=== PATIENT | male | born 1995 | race Caucasian/White ===

== ENCOUNTER 2023-11-02 00:10 | Inpatient (IN) ==
--- NOTE | 2023-11-02 00:44 | Emergency Department Note ---
Impression & Plan Hallucinations, Suicidal ideation ED Provider Note ED Provider Note NAME: JEROME KISER AGE:28 SEX: Male : 1995 ARRIVES VIA: Police INFORMANT: Patient ED PROVIDER(s): Jessica Kang DO CHIEF COMPLAINT: Mental health evaluation HPI: This is a 28-year-old male presents emergency department for mental health evaluation. Patient brought in by police after he called his mother stating the voices were getting worse and he had thoughts of wanting to kill himself by jumping off a bridge. He states this is most severe the voices have never been. He then called 911 and told them the same thing. He states he has previously attempted many years ago. Patient does follow with outpatient mental providers due to his history of schizophrenia and PTSD. He does get Invega injections and does feel they help, just that they wear off too soon. PAST MEDICAL HISTORY:See Below PAST SURGICAL HISTORY:See Below FAMILY HISTORY:See Below SOCIAL HISTORY:See Below HOME MEDICATIONS:See Below ALLERGIES:See Below VITALS:See Below PHYSICAL EXAMINATION: GENERAL: alert, well appearing, well nourished, no distress, non-toxic EYE EXAM: normal conjunctiva, PERRL and EOM's grossly intact OROPHARYNX: no exudate, no erythema, lips, buccal mucosa, and tongue normal and mucous membranes are moist NECK: supple, no nuchal rigidity, no adenopathy, non-tender LUNGS: Clear to auscultation. Normal chest wall mechanics, no w/r/r HEART: no murmurs, S1 normal and S2 normal ABDOMEN: abdomen soft, non-tender, normo-active bowel sounds, no masses, no rebound or guarding. SKIN: no rashes, petechiae, orbruising UPPER EXTREMITIES: upper extremities are grossly normal. FROM, nml pulses b/l. LOWER EXTREMITIES: No pitting edema. FROM, nml pulses b/l. NEURO EXAM: Normal sensorium, cranial nerves II-XII grossly intact, normal speech, no facial droop,nogross weakness of arms, no gross weakness of legs. Gross sensation intact. No ataxia. Vital Signs: reviewed and remarkable Differential Diagnosis: mood disorder, suicidal ideation, anxiety, depression, substance abuse, toxidrome, infection, hypoglycemia, electrolyte abnormalities, ICH as well as others were considered. MEDICAL DECISION MAKING: This is a 28-year-old male presents emergency department due to concern for increasing hallucinations as well as thoughts of suicide with a plan. Patient states he has been compliant with medications prescribed and feels they do help although they just wear off too soon. He states that the hallucinations have never been this bad previously. Labs and urine collected and sent per protocol. Patient cooperative during exam. Patient evaluated by case management and was in agreement with recommendation for additional inpatient evaluation and treatment. Patient referred to [facility] and was accepted there. 201 signed by me. Consultation(s): 0335: Patient seen and evaluated by case management and referred to [facility] Patient accepted to [facility] 201 signed by me. ER Treatment Provided: See below Diagnostics Interpreted By Me: -Laboratory studies: As stated above and show below. Triage Nursing Note Reviewed Prior/Outside Records Reviewed Past Med/Surg History Problem List (Updated 11/02/23 @ 00:44 by Jessica Kang DO) Suicidal ideation (Acute) Hallucinations (Acute) Right testicular pain (Acute) Social History Smoking Status: Current every day smoker Tobacco Type: Cigarettes Preferred Language: Eritrean Feels Safe at Home: Yes Gender Identity: Male Allergies Allergies Allergy/AdvReac Type Severity Reaction Status Date / Time No Known Allergies Allergy Unverified 10/09/15 08:34 Results & Data (ED) Vital Signs Vital Signs - 24 hr 11/02/23 00:28 Pulse Rate 106 H Respiratory Rate 18 Respiratory Effort / Characteristics Non-Labored Spontaneous Respiratory Depth Normal Respiratory Pattern Regular Blood Pressure 114/81 Blood Pressure Mean 92 Pulse Oximetry 98 Oxygen Delivery Method Room Air Sepsis Recent Fever Within 48 Hours No Sepsis New/Unexplained Change in Mental Status No Sepsis Action Taken by Nursing No Action Required Laboratory Data 11/02/23 00:41 11/02/23 00:41 Lab Results 11/02/23 11/02/23 11/02/23 Range/Units 00:41 01:06 01:47 WBC 9.30 (4.8-10.8) K/ul RBC 5.46 (4.70-6.10) M/uL Hgb 16.0 (14.0-18.0) g/dl Hct 45.0 (42.0-52.0) % MCV 82.4 (80.0-100.0) fL MCH 29.3 (25.0-34.0) pg MCHC 35.6 (32.0-36.0) g/dL RDW Std Deviation 35.9 L (36.4-46.3) fL RDW Coeff of Wero 12.0 (11.5-14.5) % Plt Count 209 (130-400) K/uL MPV 10.6 (9.4-12.4) fL Immature Gran % (Auto) 0.2 % Neut % (Auto) 75.6 % Lymph % (Auto) 17.3 % Early % (Auto) 6.6 % Eos % (Auto) 0.1 % Baso % (Auto) 0.2 % Neut # (Auto) 7.03 H (1.40-6.50) K/uL Lymph # (Auto) 1.61 (1.20-3.40) K/uL Early # (Auto) 0.61 H (0.11-0.59) K/uL Eos # (Auto) 0.01 (0.00-0.50) K/uL Baso # (Auto) 0.02 (0.00-0.20) K/uL Immature Gran # (Auto) 0.02 (0.01-0.20) K/uL Sodium 139 (136-145) mmol/L Potassium 3.4 L (3.5-5.1) mmol/L Chloride 106 (98-107) mmol/L Carbon Dioxide 22 (21-32) mmol/L Anion Gap 11 (3-11) BUN 12 (6-23) mg/dl Creatinine 1.08 (0.6-1.4) mg/dl Est Cr Clr Drug Dosing Not Reportable Est GFR ( Amer) 109.2 ml/min Est GFR (Non-Af Amer) 94.2 ml/min BUN/Creatinine Ratio 11.1 (10-20) Glucose 94 (70-99(Fasting)) mg/dl Calcium 9.6 (8.6-10.3) mg/dl Total Bilirubin 0.7 (0.2-1.0) mg/dl AST 15 (13-39) U/L ALT 11 (7-52) U/L Alkaline Phosphatase 55 (34-104) U/L Total Protein 7.3 (6.0-8.3) gm/dl Albumin 5.1 H (3.4-5.0) gm/dl Globulin 2.2 L (2.5-4.0) gm/dl Albumin/Globulin Ratio 2.3 H (0.9-2) TSH 2.737 (0.300-4.500) uIu/ml Urine Color Yellow Urine Appearance Clear (Clear) Urine pH 5.5 (4.5-7.5) Ur Specific [place] 1.018 (1.000-1.030) Urine Protein Negative (Negative) Urine Glucose (UA) Negative (Negative) Urine Ketones Trace H (Negative) Urine Blood Negative (Negative) Urine Nitrite Negative (Negative) Urine Bilirubin Negative (Negative) Urine Urobilinogen Negative (Negative) Ur Leukocyte Esterase Negative (Negative) Salicylates < 3.0 L (3.0-30) mg/dl Urine Opiates Screen Neg (Neg) Ur Methadone, Qual Neg (Neg) Urine Fentanyl Screen Neg (Neg) Acetaminophen < 3 L (10-30) ug/ml Urine Barbiturates Neg (Neg) Ur Phencyclidine (PCP) Neg (Neg) U Amphetamin/Meth Scrn Neg (Neg) MDMA (Ecstasy) Screen Neg (Neg) U Benzodiazepines Scrn Neg (Neg) Ur Cocaine Metabolite Neg (Neg) U Marijuana (THC) Screen Neg (Neg) Ethyl Alcohol mg/dL < 10.0 (<10.0) mg/dl SARS-CoV-2, RNA, NAAT NEGATIVE (NEGATIVE) Administered Medications Discontinued Medications Lorazepam (Lorazepam 1 Mg Tab) 1 mg PO NOW STA Stop: 11/02/23 02:32 Last Admin: 11/02/23 02:37 Dose: 1 mg Documented By: ABRAN Nicotine (Nicotine 21 Mg/24 Hr Tdsy) 1 patch TD NOW STA Stop: 11/02/23 02:15 Last Admin: 11/02/23 02:18 Dose: 1 patch Documented By: ABRAN Discharge Plan Visit Data Chief Complaint: Mental Health Evaluation Stated Complaint: MENTAL HEALTH ASSESSMENT(302) ED Provider: Jessica Kang Discharge Problem: Hallucinations, Suicidal ideation
[2023-11-02 00:56] LABS: Basophils # (auto) 0.02 K/uL (0.00-0.20); Basophils % (auto) 0.2 %; Eosinophils # (auto) 0.01 K/uL (0.00-0.50); Eosinophils % (auto) 0.1 %; Immature Granulocytes # (auto) 0.02 K/uL (0.01-0.20); Immature Granulocytes % (auto) 0.2 %; Lymphocytes # (auto) 1.61 K/uL (1.20-3.40); Lymphocytes % (auto) 17.3 %; Mean Corpuscular Hemoglobin 29.3 pg (25.0-34.0); Mean Corpuscular Hgb Conc 35.6 g/dL (32.0-36.0); Mean Corpuscular Volume 82.4 fL (80.0-100.0); Mean Platelet Volume 10.6 fL (9.4-12.4); Monocytes # (auto) 0.61 K/uL (0.11-0.59); Monocytes % (auto) 6.6 %; Neutrophils # (auto) 7.03 K/uL (1.40-6.50); Neutrophils % (auto) 75.6 %; Platelet Count 209 K/uL (130-400); RDW Standard Deviation 35.9 fL (36.4-46.3); Red Blood Count 5.46 M/uL (4.70-6.10)
[2023-11-02 01:15] LABS: Acetaminophen < 3 ug/ml (10-30); Salicylate < 3.0 mg/dl (3.0-30)
[2023-11-02 01:23] LABS: Alanine Aminotransferase 11 U/L (7-52); Albumin Globulin Ratio 2.3 (0.9-2); Albumin Level 5.1 gm/dl (3.4-5.0); Alkaline Phosphatase 55 U/L (34-104); Anion Gap 11 (3-11); Aspartate Aminotransferase 15 U/L (13-39); BUN Creatinine Ratio 11.1 (10-20); Bilirubin,Total 0.7 mg/dl (0.2-1.0); Blood Urea Nitrogen 12 mg/dl (6-23); Calcium 9.6 mg/dl (8.6-10.3); Carbon Dioxide 22 mmol/L (21-32); Chloride 106 mmol/L (98-107); Est GFR (African American) 109.2 ml/min; Est GFR (Non-African American) 94.2 ml/min; Globulin 2.2 gm/dl (2.5-4.0); Glucose 94 mg/dl (70-99(Fasting)); Potassium 3.4 mmol/L (3.5-5.1); Sodium 139 mmol/L (136-145); Total Protein 7.3 gm/dl (6.0-8.3)
[2023-11-02 01:24] LABS: Appearance Urine Clear (Clear); Bilirubin Urine Negative (Negative); Blood Urine Negative (Negative); Color Urine Yellow; Glucose Urine UA Negative (Negative); Ketones Urine Trace (Negative); Leukocyte Esterase Urine Negative (Negative); Nitrite Urine Negative (Negative); Protein Urine Negative (Negative); Specific Gravity Urine 1.018 (1.000-1.030); Urobilinogen Urine Negative (Negative); pH Urine 5.5 (4.5-7.5)
[2023-11-02 01:39] LABS: Thyroid Stimulating Hormone 2.737 uIu/ml (0.300-4.500)
[2023-11-02 02:17] LABS: Amphetamines+Metham, Urine Neg (Neg); Barbiturates, Urine Neg (Neg); Benzodiazepine, Urine Neg (Neg); Cocaine, Urine Neg (Neg); Fentanyl, Urine Neg (Neg); MDMA (Ecstacy), Urine Neg (Neg); Marijuana, Urine Neg (Neg); Methadone, Urine Neg (Neg); Opiate, Urine Neg (Neg); Phencyclidine, Urine Neg (Neg)
[2023-11-02] MEDS: NICOTINE 21 MG/24 HR TDSY TD STA (02:18)
[2023-11-02] MEDS: LORazepam 1 MG TAB PO STA (02:37)
[2023-11-02] MEDS ORDERED: BISMUTH SUBSALICYLATE LIQD 236 ML PO PRN (05:12)
[2023-11-02] MEDS ORDERED: LORazepam 1 MG TAB PO PRN (05:12)
[2023-11-02] MEDS ORDERED: MAGNESIUM HYDROXIDE SUSP 30 ML UDC PO PRN (05:12)
[2023-11-02] MEDS ORDERED: hydrOXYzine HCl 25 MG TAB PO PRN (05:12)
[2023-11-02] MEDS ORDERED: SODIUM CHLORIDE 0.65% NA SOLN 45 ML (OCEAN) PRN (05:12)
[2023-11-02] MEDS ORDERED: risperiDONE 0.25 MG TAB PO PRN (05:17)
[2023-11-02] MEDS ORDERED: NICOTINE 21 MG/24 HR TDSY TD SCH (09:00)
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
[2023-11-02] MEDS: THIAMINE HCL 100 MG TAB PO SCH (12:00)
[2023-11-02] MEDS: PALIPERIDONE 3 MG TABCR PO SCH (15:19)
[2023-11-02] MEDS: PALIPERIDONE 1.5 MG TABCR PO SCH (15:39)
[2023-11-02] MEDS: NICOTINE 21 MG/24 HR TDSY TD SCH (16:52)
[2023-11-02] MEDS: hydrOXYzine HCl 25 MG TAB PO PRN (21:28)
--- NOTE | 2023-11-03 08:40 | Psychiatric Progress Note ---
Date of Service November 03, 2023 Impression / Recommendations Impression JEROME Lazaro" is a 28-year-old man who currently lives in [place] with his uncle, has a history of schizophrenia and PTSD, and was admitted on 11/02/23 03:49 on a 201 voluntary commitment for auditory hallucinations and SI with plan of jumping from a bridge. Diagnostically consistent with acute exacerbation of schizophrenia with prominent thought blocking and sparsity of thought content and major depressive episode. A: Ongoing psychosis with AH but lessening a bit today with addition of po Invega which he is tolerating well. No thoughts of SI today.He prefers not to start any additional medications for his mood as he reports bad experience with being on medications in the past during psychiatric hospitalizations, would like to stay on Invega monotherapy. Will discontinue AWSS as not scoring. MNPR due to psychosis with auditory hallucinations Overall, I spent a total of 35 minutes on this case including meeting with the patient, reviewing the chart, nursing report, multidisciplinary team meeting, orders, and documentation. (1) Schizophrenia: (2) Depression with suicidal ideation: (3) Hallucinations: (4) Alcohol use disorder: Plan 11/03/2023: Continue current medications and tx plan. Fasting labwork tomorrow as he had coffee with sugar this AM. 11/02/2023: The patient was admitted to the [facility] ([facility]) on q15 min checks (behavioral with suicide precautions) for safety. The patient will participate in group, recreational, and milieu therapies and will be offered additional individual and family sessions as clinically appropriate. -Start Invega 3mg daily -If he tolerates addition of po Invega would likely benefit from increasing Invega UMANA to 234mg starting next month -AWSS with thiamine and folic acid -Fasting labs tomorrow AM Inventory Assets Strengths: supportive relationships, willing to get treatment Needs: safety and stabilization, medication adjustment, additional coping skills, increased outpatient services Suicide Risk Level Suicide Risk Level: High-Moderate (q15 min suicide checks) (increased psychosis and SI with plan prior to admission but denies any command AH, feels safe in the hospital, feels able to ask for increased support if needed) Risk Factors Assessment Male: Yes : Yes Do You Have Access To A Gun?: No Health Problems: No Mental Health Diagnoses: Yes Substance Use Disorders: Yes Previous Attempt: Yes Previous Psychiatric Hospitalization: Yes Protective Factors Assessment Employed: Yes Supportive Family: Yes Good Rapport with Provider: Yes Interval History Identifying Information JEROME Lazaro" is a 28-year-old man who currently lives in [place] with his uncle, has a history of schizophrenia and PTSD, and was admitted on 11/02/23 03:49 on a 201 voluntary commitment for auditory hallucinations and SI with plan of jumping from a bridge. Chief Complaint "I think the sleep is helping". Review of Systems Sleep Information Total Hours of Sleep: 7.5 Sleep Comments: Meal Information Percent Meal Consumed - Breakfast: 0 Percent Meal Consumed - Lunch: 100 Percent Meal Consumed - Dinner: 100 Nutrition Comment: Subjective Subjective Patient was seen & assessed and interval progress reviewed with treatment team nursing and social work. Attended one group yesterday afternoon but slept through it. Isolated but came out for meals. Irritable with RNs and staff this morning. Today reports feeling a little better which he attributes to the addition of the po Invega and sleeping. Reports poor sleep since last week due to increased distress from the voices. Continues to deny any command AH but is distressed by the voices because they talk about how they are going to harm people and "it's what they're saying, it's just not good stuff". He feels the po invega is helping him "feel more relaxed" and "keeping the voices from progressing". Physical Exam Psychiatric Orientation: alert and oriented x 3 Apperance: + disheveled Eye Contact: + fair eye contact Motor Behavior: + psychomotor retardation Speech: normal rate/rhythm/volume of speech Affect: + flat affect Mood: + depressed mood Thought Process: + thought blocking Thought Content: reality based without delusions Suicidal Thoughts: denies suicidal thoughts (none so far today), denies suicidal plan (none for hospital, outside via jumping from bridge) and denies suicidal intent Homicidal Thoughts: denies homicidal thoughts Hallucinations: + auditory hallucinations (voices talk about harming people, denies any command AH); no visual hallucinations Cognition: recent memory grossly intact, remote memory grossly intact, attention grossly intact and language grossly intact Insight: + limited insight Judgment: + limited judgement Vital Signs (Past 24 Hours) Last Vital Signs Temp 36.6 C 11/03/23 06:24 Pulse 85 11/03/23 06:24 Resp 16 11/03/23 06:24 BP 124/77 11/03/23 06:24 Pulse Ox 98 11/03/23 06:24 O2 Del Method Room Air 11/03/23 06:24 Results & Data ([facility]) Current Inpatient Medications Current Inpatient Medications: Current Inpatient Medications Acetaminophen (Acetaminophen 325 Mg Tab) 650 mg PO Q4H PRN PRN Reason: Headache or Minor Fever Stop: 12/02/23 05:11 Al Hydrox/Mg Hydrox/Simethicone (Aluminum/Magnesium Susp 30 Ml Udc) 30 ml PO Q4H PRN PRN Reason: GI Upset Stop: 12/02/23 05:11 Bismuth Subsalicylate (Bismuth Subsalicylate Liqd 236 Ml) 15 ml PO PRN PRN PRN Reason: Loose Stool Stop: 12/02/23 05:11 Folic Acid (Folic Acid 1 Mg Tab) 1 mg PO QAM SHARRI Stop: 12/03/23 08:59 Hydroxyzine HCl (Hydroxyzine Hcl 25 Mg Tab) 50 mg PO HSZ PRN PRN Reason: Insomnia Stop: 12/02/23 05:11 Last Admin: 11/02/23 21:28 Dose: 50 mg Hydroxyzine HCl (Hydroxyzine Hcl 25 Mg Tab) 25 mg PO Q4H PRN PRN Reason: Anxiety Stop: 12/02/23 05:11 Lorazepam (Lorazepam 1 Mg Tab) 1 mg PO ONE PRN; Protocol PRN Reason: EtoH Withdrawal AWSS 6,7,8,9,10 Magnesium Hydroxide (Magnesium Hydroxide Susp 30 Ml Udc) 30 ml PO DAILY PRN PRN Reason: Constipation Stop: 12/02/23 05:11 Miscellaneous (Remove Nicoderm Patch) 1 each N/A DAILY@0859 [facility] Stop: 12/03/23 08:58 Nicotine (Nicotine 21 Mg/24 Hr Tdsy) 1 patch TD QAM [facility] Stop: 12/02/23 15:59 Last Admin: 11/02/23 16:52 Dose: 1 patch Nicotine Polacrilex (Nicotine Polacrilex 2 Mg Gum) 2 piece MT PRN PRN PRN Reason: Nicotine Withdrawal Symptoms Stop: 12/02/23 05:11 Paliperidone (Paliperidone 1.5 Mg Tabcr) 3 mg PO DAILY SHARRI Stop: 12/02/23 14:59 Last Admin: 11/02/23 15:39 Dose: 3 mg Risperidone (Risperidone 0.25 Mg Tab) 0.5 mg PO BID PRN PRN Reason: Psychosis/agitation Stop: 12/02/23 05:16 Sodium Chloride (Sodium Chloride 0.65% Na Soln 45 Ml ([place])) 1 - 2 sprays NA PRN PRN PRN Reason: Nasal Dryness/Congestion Stop: 12/02/23 05:11 Thiamine HCl (Thiamine Hcl 100 Mg Tab) 100 mg PO QAM SHARRI Stop: 12/02/23 09:59 Last Admin: 11/02/23 12:00 Dose: 100 mg Mental Health & Subst Abuse Tx Therapist Name of Therapist: TIM Cook Camp Name of Cook Camp: TIM
[2023-11-03] MEDS: FOLIC ACID 1 MG TAB PO SCH (08:47)
[2023-11-03] MEDS: NICOTINE POLACRILEX 2 MG GUM MT PRN (13:28)
[2023-11-03] MEDS: ALUMINUM/MAGNESIUM SUSP 30 ML UDC PO PRN (15:20)
--- NOTE | 2023-11-04 08:37 | Psychiatric Progress Note ---
Date of Service November 04, 2023 Impression / Recommendations Impression JEROME Lazaro" is a 28-year-old man who currently lives in [place] with his uncle, has a history of schizophrenia and PTSD, and was admitted on 11/02/23 03:49 on a 201 voluntary commitment for auditory hallucinations and SI with plan of jumping from a bridge. Diagnostically consistent with acute exacerbation of schizophrenia with prominent thought blocking and sparsity of thought content and major depressive episode. A: Mood improving and psychosis lessening significantly. Still with some AH but close to his chronic baseline level. Tolerating po Invega and finds this very helpful. Sleeping well and engaging in groups and no evidence of thought blocking today. Still reluctant to involve his family supports or get assistance from with setting him up with outpatient CM but agreeable to taking the number and wishes to call himself. Unfortunately his psychiatric provider is no longer at the office where he was seeing her so he'll need a new provider. Looking into disposition options for this as he'll need to continue his Invega UMANA. Tolerating Invega po well. Reviewed fasting labwork which was all normal. MNPR due to psychosis with auditory hallucinations Overall, I spent a total of 35 minutes on this case including meeting with the patient, reviewing the chart, nursing report, multidisciplinary team meeting, orders, and documentation. (1) Schizophrenia: (2) Depression with suicidal ideation: (3) Hallucinations: (4) Alcohol use disorder: Plan 11/04/2023: Continue current medications and tx plan. Disposition planning-needs an outpt psych provider. 11/03/2023: Continue current medications and tx plan. Fasting labwork tomorrow as he had coffee with sugar this AM. 11/02/2023: The patient was admitted to the [facility] ([facility] unit) on q15 min checks (behavioral with suicide precautions) for safety. The patient will participate in group, recreational, and milieu therapies and will be offer ed additional individual and family sessions as clinically appropriate. -Start Invega 3mg daily -If he tolerates addition of po Invega would likely benefit from increasing Invega UMANA to 234mg starting next month -AWSS with thiamine and folic acid -Fasting labs tomorrow AM Inventory Assets Strengths: supportive relationships, willing to get treatment Needs: safety and stabilization, medication adjustment, additional coping skills, increased outpatient services Suicide Risk Level Suicide Risk Level: Moderate (q15 min suicide checks) (increased psychosis and SI with plan prior to admission but denies any command AH, mood improving, feels safe in the hospital, feels able to ask for increased support if needed) Risk Factors Assessment Male: Yes : Yes Do You Have Access To A Gun?: No Health Problems: No Mental Health Diagnoses: Yes Substance Use Disorders: Yes Previous Attempt: Yes Previous Psychiatric Hospitalization: Yes Protective Factors Assessment Employed: Yes Supportive Family: Yes Good Rapport with Provider: Yes Interval History Identifying Information JEROME Lazaro" is a 28-year-old man who currently lives in [place] with his uncle, has a history of schizophrenia and PTSD, and was admitted on 11/02/23 03:49 on a 201 voluntary commitment for auditory hallucinations and SI with plan of jumping from a bridge. Chief Complaint "Better". Review of Systems Sleep Information Total Hours of Sleep: 8 Meal Information Percent Meal Consumed - Breakfast: 100 Percent Meal Consumed - Lunch: 100 Percent Meal Consumed - Dinner: 100 Subjective Subjective Patient was seen & assessed and interval progress reviewed with treatment team nursing and social work. Struggled to discuss his emotions and goals during group yesterday. Some paranoia when asked about why he was contacting his outpatient provider. But did engage well with [facility] and recreation groups. Today reports he slept well last night. Feels his mood is "better". Voices "ok, not too bad today". Denies SI. 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 Discussed his interest in skateboarding/longboarding. Feels his appetite is coming back which he also reports is "a good sign". Physical Exam Psychiatric Orientation: alert and oriented x 3 Apperance: appropriately dressed and appropriately groomed Eye Contact: + fair eye contact Motor Behavior: no abnormal motor movements Speech: normal rate/rhythm/volume of speech Affect: + constricted affect Mood: + depressed mood Thought Process: linear/logical thought process Thought Content: reality based without delusions Suicidal Thoughts: denies suicidal thoughts, denies suicidal plan and denies suicidal intent Homicidal Thoughts: denies homicidal thoughts Hallucinations: + auditory hallucinations (voices talk about harming people, denies any command AH, lessening); no visual hallucinations Cognition: recent memory grossly intact, remote memory grossly intact, attention grossly intact and language grossly intact Insight: + fair insight Judgment: + fair judgement Vital Signs (Past 24 Hours) Last Vital Signs Temp 36.5 C 11/04/23 06:34 Pulse 66 11/04/23 06:35 Resp 16 11/04/23 06:34 BP 124/70 11/04/23 06:35 Pulse Ox 98 11/03/23 06:24 O2 Del Method Room Air 11/03/23 06:24 Results & Data ([facility]) Current Inpatient Medications Current Inpatient Medications: Current Inpatient Medications Acetaminophen (Acetaminophen 325 Mg Tab) 650 mg PO Q4H PRN PRN Reason: Headache or Minor Fever Stop: 12/02/23 05:11 Al Hydrox/Mg Hydrox/Simethicone (Aluminum/Magnesium Susp 30 Ml Udc) 30 ml PO Q4H PRN PRN Reason: GI Upset Stop: 12/02/23 05:11 Last Admin: 11/03/23 15:20 Dose: 30 ml Bismuth Subsalicylate (Bismuth Subsalicylate Liqd 236 Ml) 15 ml PO PRN PRN PRN Reason: Loose Stool Stop: 12/02/23 05:11 Hydroxyzine HCl (Hydroxyzine Hcl 25 Mg Tab) 50 mg PO HSZ PRN PRN Reason: Insomnia Stop: 12/02/23 05:11 Last Admin: 11/02/23 21:28 Dose: 50 mg Hydroxyzine HCl (Hydroxyzine Hcl 25 Mg Tab) 25 mg PO Q4H PRN PRN Reason: Anxiety Stop: 12/02/23 05:11 Magnesium Hydroxide (Magnesium Hydroxide Susp 30 Ml Udc) 30 ml PO DAILY PRN PRN Reason: Constipation Stop: 12/02/23 05:11 Miscellaneous (Remove Nicoderm Patch) 1 each N/A DAILY@0859 [facility] Stop: 12/03/23 08:58 Last Admin: 11/03/23 08:48 Dose: 1 each Nicotine (Nicotine 21 Mg/24 Hr Tdsy) 1 patch TD QAM [facility] Stop: 12/02/23 15:59 Last Admin: 11/03/23 08:47 Dose: 1 patch Nicotine Polacrilex (Nicotine Polacrilex 2 Mg Gum) 2 piece MT PRN PRN PRN Reason: Nicotine Withdrawal Symptoms Stop: 12/02/23 05:11 Last Admin: 11/03/23 17:53 Dose: 1 piece Paliperidone (Paliperidone 1.5 Mg Tabcr) 3 mg PO DAILY SHARRI Stop: 12/02/23 14:59 Last Admin: 11/03/23 08:47 Dose: 3 mg Risperidone (Risperidone 0.25 Mg Tab) 0.5 mg PO BID PRN PRN Reason: Psychosis/agitation Stop: 12/02/23 05:16 Sodium Chloride (Sodium Chloride 0.65% Na Soln 45 Ml ([place])) 1 - 2 sprays NA PRN PRN PRN Reason: Nasal Dryness/Congestion Stop: 12/02/23 05:11 Mental Health & Subst Abuse Tx Therapist Name of Therapist: TIM Economics Lecturer Name of Economics Lecturer: TIM
[2023-11-04 09:53] LABS: Chol HDL Ratio 2.9 (0-5)
[2023-11-04 10:51] LABS: Estimated Average Glucose 100 mg/dl; Hemoglobin A1C 5.1 % (4.5-5.6)
[2023-11-04] MEDS: ACETAMINOPHEN 325 MG TAB PO PRN (21:26)
--- NOTE | 2023-11-05 09:56 | Discharge Summary ---
Date of Service November 05, 2023 History of Present Illness Dimitri presented for admission for worsening auditory hallucinations which tell him they are going to hurt people and increased depression. He denies that the voices ever command him to do anything and denies HI but the voices frequently talk about how they are going to harm people which is distressing to him. He's been more depressed lately with difficulty sleeping, decreased appetite, low mood, decreased motivation, low energy and now SI with possible plans. He feels his symptoms have been worsening due to the being outside the heat and his Invega wearing off too quickly due to this. He's been on Invega UMANA for about a year and finds it helpful but over the last two months has noticed that it seems to wear off about 3-5 days before he is due for his next dose for the month. References somatic symptoms and pain as a sign that his medication is wearing off, he isn't sure the Invega helps significantly with the voices as they are always present. He has been self-administering Invega UMANA 156mg monthly. He last gave himself the injection on Friday (10/29/2023). Denies any side effects, reports he has never had any issues with the injection site. Today reports he is feeling very tired which he attributes to not sleeping well in recent days. Identifies recent stressor of financial strain of struggling to make his rent payments but feels this will lessen soon as he plans to move to [place] to be with family where his rent payment will be very low. Identifies a history of PTSD. Denies any history of patricia. Physical Exam Vital Signs (Past 24 Hours) Last Vital Signs Temp 36.3 C L 11/05/23 08:12 Pulse 70 11/05/23 08:12 Resp 16 11/05/23 08:12 BP 129/81 11/05/23 08:12 Pulse Ox 98 11/05/23 08:12 O2 Del Method Room Air 11/03/23 06:24 See admission H&P and DOD summary. Principal Diagnosis Schizophrenia Psychiatric Data See daily stay summary. In short, patient was engaged with the social/therapeutic milieu of the unit, safety was maintained and the patient was cooperative with care. Medication changes included addition of Invega 3mg po and they tolerated this well. Would consider option to increase next dose of Invega to 234mg UMANA if he continues to tolerate combination of Invega 156mg UMANA and Invega 3mg po. He may also be a good candidate for one of the longer lasting UMANA Invega options such as Trinza or Hafyera. He declined a family session, but spoke with his dad during his admission, and safety plan was completed prior to discharge. He participated in safety planning and in discussions about ways to seek support and recognizing warning signs and utilizing coping skills. Reviewed importance of seeking emergency care should SI intensify, worsen or should they feel unsafe in the future which they agree to do. On the day of discharge he stated his mood was "good" and remained future-oriented including seeing his family, moving to [facility], working on the house he is moving into and engaging in aftercare appointments for psychiatry and case management. Day of Discharge Assessment Today the patient voices readiness for discharge. They note improvement in mood and anxiety. They deny thoughts of harm to self or others. Thoughts are organized and they are clinically improved from admission. There is no evidence of psychosis. They improved in the hospital with support and medication adjustments. They agree to take medications as prescribed and keep follow-up appointments. At the time of the discharge they are deemed to be stable and appropriate for outpatient level of care. They are not deemed to be at imminent risk of harm to self or others. They are aware of emergency and crisis services. Knows to call 911 or go to nearest emergency care center if in a crisis which cannot be handled as an outpatient. Overall, I spent a total of 35 minutes on this case including meeting with the patient, reviewing the chart, nursing report, multidisciplinary team meeting, orders, and documentation. Transition of Care Transition Of Care Record: was reviewed with the patient Advance Directives Advance Directives Information Provided: Yes Advance Directives: No Mental Health Advance Directive: No Advance Directives on File: No Living Will: No Power of Golf Teacher: No Advance Directives Reason:: Declines as Mental Health Visit. Suicide Risk Level Suicide Risk Level Comments: Acute risk is low given improvement in mood and denial of SI, lack of access to lethal means, plan to avoid substance use, improvement in sleep, hopefulness and improvement in psychosis. Chronic risk is moderate given some non-modifiable risk factors: prior attempt, prior psychiatric hospitalizations, schizophrenia but also with protective factors including: good social support, sense of responsibility to family and social supports, outpatient care in place, positive coping skills, positive problem solving, capacity to establish therapeutic alliance, willingness to engage with treatment and capacity for self- observation. Counseled on ways to reduce acute and chronic risk including engaging with outpatient providers, using safety plan if needed, utilizing supports, taking medication, and using coping skills. Modifiable risk factors of SI and psychosis were addressed during hospitalization through development of new coping skills, safety planning, and medication adjustments. Risk Factors Assessment Male: Yes : Yes Do You Have Access To A Gun?: No Health Problems: No Mental Health Diagnoses: Yes Substance Use Disorders: Yes Previous Attempt: Yes Previous Psychiatric Hospitalization: Yes Hopelessness: No Protective Factors Assessment Employed: Yes Stable Relationships: Yes Supportive Family: Yes Good Rapport with Provider: Yes Tobacco Cessation at Discharge Tobacco Cessation Medication Prescribed at Discharge: Offered & Pt Refused Discharge Data Lab Results 11/02/23 11/02/23 11/02/23 00:41 01:06 01:47 WBC 9.30 RBC 5.46 Hgb 16.0 Hct 45.0 MCV 82.4 MCH 29.3 MCHC 35.6 RDW Std Deviation 35.9 L RDW Coeff of Wero 12.0 Plt Count 209 MPV 10.6 Immature Gran % (Auto) 0.2 Neut % (Auto) 75.6 Lymph % (Auto) 17.3 [place] % (Auto) 6.6 Eos % (Auto) 0.1 Baso % (Auto) 0.2 Neut # (Auto) 7.03 H Lymph # (Auto) 1.61 [place] # (Auto) 0.61 H Eos # (Auto) 0.01 Baso # (Auto) 0.02 Immature Gran # (Auto) 0.02 Sodium 139 Potassium 3.4 L Chloride 106 Carbon Dioxide 22 Anion Gap 11 BUN 12 Creatinine 1.08 Est Cr Clr Drug Dosing Not Reportable Est GFR ( Amer) 109.2 Est GFR (Non-Af Amer) 94.2 BUN/Creatinine Ratio 11.1 Glucose 94 Fasting Glucose Estimat Average Glucose Hemoglobin A1c Calcium 9.6 Total Bilirubin 0.7 AST 15 ALT 11 Alkaline Phosphatase 55 Total Protein 7.3 Albumin 5.1 H Globulin 2.2 L Albumin/Globulin Ratio 2.3 H Triglycerides Cholesterol LDL Cholesterol, Calc VLDL Cholesterol, Calc HDL Cholesterol Cholesterol/HDL Ratio TSH 2.737 Urine Color Yellow Urine Appearance Clear Urine pH 5.5 Ur Specific [place] 1.018 Urine Protein Negative Urine Glucose (UA) Negative Urine Ketones Trace H Urine Blood Negative Urine Nitrite Negative Urine Bilirubin Negative Urine Urobilinogen Negative Ur Leukocyte Esterase Negative Salicylates < 3.0 L Urine Opiates Screen Neg Ur Methadone, Qual Neg Urine Fentanyl Screen Neg Acetaminophen < 3 L Urine Barbiturates Neg Ur Phencyclidine (PCP) Neg U Amphetamin/Meth Scrn Neg MDMA (Ecstasy) Screen Neg U Benzodiazepines Scrn Neg Ur Cocaine Metabolite Neg U Marijuana (THC) Screen Neg Ethyl Alcohol mg/dL < 10.0 SARS-CoV-2, RNA, NAAT NEGATIVE 11/04/23 09:07 WBC RBC Hgb Hct MCV MCH MCHC RDW Std Deviation RDW Coeff of Wero Plt Count MPV Immature Gran % (Auto) Neut % (Auto) Lymph % (Auto) [place] % (Auto) Eos % (Auto) Baso % (Auto) Neut # (Auto) Lymph # (Auto) [place] # (Auto) Eos # (Auto) Baso # (Auto) Immature Gran # (Auto) Sodium Potassium Chloride Carbon Dioxide Anion Gap BUN Creatinine Est Cr Clr Drug Dosing Est GFR ( Amer) Est GFR (Non-Af Amer) BUN/Creatinine Ratio Glucose Fasting Glucose 90 Estimat Average Glucose 100 Hemoglobin A1c 5.1 Calcium Total Bilirubin AST ALT Alkaline Phosphatase Total Protein Albumin Globulin Albumin/Globulin Ratio Triglycerides 127 Cholesterol 142 LDL Cholesterol, Calc 68 VLDL Cholesterol, Calc 25 HDL Cholesterol 49 Cholesterol/HDL Ratio 2.9 TSH Urine Color Urine Appearance Urine pH Ur Specific [place] Urine Protein Urine Glucose (UA) Urine Ketones Urine Blood Urine Nitrite Urine Bilirubin Urine Urobilinogen Ur Leukocyte Esterase Salicylates Urine Opiates Screen Ur Methadone, Qual Urine Fentanyl Screen Acetaminophen Urine Barbiturates Ur Phencyclidine (PCP) U Amphetamin/Meth Scrn MDMA (Ecstasy) Screen U Benzodiazepines Scrn Ur Cocaine Metabolite U Marijuana (THC) Screen Ethyl Alcohol mg/dL SARS-CoV-2, RNA, NAAT Hospital Course (1) Schizophrenia: (2) Depression with suicidal ideation: (3) Hallucinations: (4) Alcohol use disorder: Plan 11/05/2023: Agreeable to outpatient psych referral and case management services. Desires discharge. 11/04/2023: Continue current medications and tx plan. Disposition planning-needs an outpt psych provider. 11/03/2023: Continue current medications and tx plan. Fasting labwork tomorrow as he had coffee with sugar this AM. 11/02/2023: The patient was admitted to the [facility] on q15 min checks (behavioral with suicide precautions) for safety. The patient will participate in group, recreational, and milieu therapies and will be offered additional individual and family sessions as clinically appropriate. -Start Invega 3mg daily -If he tolerates addition of po Invega would likely benefit from increasing Invega UMANA to 234mg starting next month -AWSS with thiamine and folic acid -Fasting labs tomorrow AM Mental Health & Subst Abuse Tx Psychiatrist Name of Psychiatrist: [facility] | [facility] Psychiatrist's Date Of Appointment With Psychiatric Provider: pending Time of Appointment with Psychiatrist: Please follow up if you are in need of services/medication. Psychiatric Appointment Comment: [place] [address] [id number] Therapist Name of Therapist: [employer] Worker Name of Production Manufacturing Worker: [id number] (Service Access [employer] Management) Phone Number for Production Manufacturing Worker: [phone] Case Management Appointment Comment: Please contact [employer]wan for case management support upon discharge Post Discharge Appointments Primary Care Physician Name Of Family Doctor/PCP: [facility] Primary Care Time of Appointment with PCP: Please follow up if you are in need of services/medication. Provider Appointment Comment: [address] [place] [address] Smoking Cessation Counseling Tobacco Cessation Medication Prescribed at Discharge: Offered & Pt Refused Contact Information Discharge Discharge Address: [address] Discharge Plan Discharge Items Patient Disposition: Home - Self-Care Reason For Visit: SCHIZOPHRENIA Discharge Diagnosis: Schizophrenia Activity: Resume your previous activity Non-emergency contact: Primary Care Provider and Plastics Fabricator And Assembler Call non-emergency contact if: you have any medication questions and your symptoms worsen Follow-up/Referrals: PCPALLI [Primary Care Provider] - Diet: Regular Addtl Attending Provider Instructions: SPECIAL CARE INSTRUCTIONS: 1. Follow through with your scheduled aftercare appointments. If unable to keep an appointment, please call to reschedule. 2. Take your medication only as prescribed. Medication should not be changed or stopped without the approval of your doctor. In the event of worsening symptoms or concerns about side effects, contact your doctor immediately. 3. Utilize new healthy coping skills, anger management skills, and stress management skills learned during your hospitalization. Journal feelings and process them with a support person. Identify stressors or situations that may result in relapse, deterioration or inappropriate behaviors and develop a plan to deal with those issues. 4. If your coping skills are ineffective and you are in crisis, contact your outpatient providers for direction. If unable to reach your providers, please call the [facility] CRISIS LINE AT , go to the [facility] walk-in center at [address], [address], [place], or go to the closest Emergency Room. 5. Avoid alcohol and un-prescribed drugs. 6. You have been provided with the Mental Health Advance Directives Pamphlet for your review. 7. Your condition is stable for discharge to outpatient level of care, but recovery is an ongoing process. Ifthoughts to harm yourself or others return, follow the safety plan developed during your stay. Planning for a safe return home includes securing weapons. Our treatment team recommends weaponsbe removed from the home until your outpatient provider reassesses your progress. In rare cases where the items themselvescannot be removed, guns and ammunitionshould be secured separatelyand keys stored by a reliable personoutside of the home. If you were admitted on an involuntary commitment, the police or other legal authorities may be involved in this process. AFTERCARE APPOINTMENTS: * Please call your insurance company prior to your scheduled appointment to confirm your aftercare providers are covered. Take your insurance information to your appointments. WHO TO CALL AND WHEN: Medical Emergencies: For questions or emergencies related to your hospital stay, please contact the Inpatient Behavioral Health Unit at [phone]. A informatics pharmacist is on-call 04/11 for the Behavioral Health Unit for emergencies At any time you feel your situation is an emergency, you may also call 911 immediately. National Crisis Line: 587 Pending Studies at Discharge: No Stand-Alone Forms: My [facility] Stylect, Smoking Cessation Medications and DC Order Prescriptions: New paliperidone 3 mg tablet extended release 24 hr 3 mg PO DAILY 30 Days Qty: 30 0RF Invega Sustenna 156 mg/mL syringe 156 mg IM Q30D Qty: 1 0RF Rx Instructions: To be administered once between 11/30/2023 - 12/07/2023 Discharge Orders: Discharge Order (Routine); Ordered 11/05/23 Ordered By: Ladonna Vega Admission Data Admit Date/Time: 11/02/23 03:49 Attending Provider: Ladonna Vega Admit Provider: Ladonna Vega Primary Care Provider: PCP,NO Other Interventions: Discharge Summary Assessment (RN) Last Done: 11/05/23 08:12 PSY Interdisciplinary Discharge Planning Last Done: 11/05/23 10:42 Coding Level of Care Code 84195 D/C day mgmt > 30 min Diagnoses Schizophrenia F20.9 Depression with suicidal ideation F32.A; R45.851 Hallucinations R44.3 Alcohol use disorder F10.90
== END 2023-11-05 14:10 | disposition home or self-care (01) | DRG 885 ==
LOC: ED 00:10 → 3S 03:49